=== PATIENT | female | born 1990 | race African-American/Black ===

== ENCOUNTER 2020-08-18 22:17 | Inpatient (IN) | payer SELFPAY ==
[~2020-08-18] VITALS: Ht 165.1 cm; Wt 89.8 kg
--- NOTE | 2020-08-18 22:28 | PHYS DOC ---
Past Medical History Past Medical History: No Pertinent History Alcohol Use: None Drug Use: Marijuana General Adult HPI: HPI: Patient is a 30-year-old female who presents via EMS for altered mental status. Patient who has no known medical issues and does not take any medications on a daily basis contacted her mother approximately 1 hour ago stating she did not feel well and that she was having a panic attack. Approximately 15 minutes after contacting her mother, patient called EMS asking for them to come and bring her to the hospital for evaluation. On arrival to the scene, patient who lives at home with mother only was found in the house with no other individuals. Patient found to have GCS of 9, minimally responsive to verbal stimuli but responsive to painful stimuli, she is tachycardic and tachypneic with remaining vitals unremarkable. Patient was subsequently transferred to our facility for further evaluation. Mother present on immediate ER arrival and assisted with medical history, states that patient has no known medical issues, does not take any medications on a daily basis, denies any illicit drug use that she is aware of, she has never had any episodes like this in the past Review of Systems: Review of Systems: Unable to obtain due to patient mentation Heart Score: HEART Score for Chest Pain: HEART Score for Chest Pain Response (Comments) Value History Slighlty/Non-Suspicious 0 ECG Normal 0 Age < 45 0 Risk Factors 1 or 2 Risk Factors 1 Troponin < Normal Limit 0 Total 1 Risk Factors: Risk Factors: DM, Current or recent (<one month) smoker, HTN, HLP, family history of CAD, obesity. Risk Scores: Score 0 - 3: 2.5% MACE over next 6 weeks - Discharge Home Score 4 - 6: 20.3% MACE over next 6 weeks - Admit for Clinical Observation Score 7 - 10: 72.7% MACE over next 6 weeks - Early Invasive Strategies Current Medications: Current Medications Medications (Trade) Dose Ordered Sig/[facility] Start Time Stop Time Status Last Admin Dose Admin Naloxone HCl (Narcan) 0.1 mg 1X ONCE 08/18/20 22:45 08/18/20 22:46 DC 08/18/20 23:03 0.1 MG Sodium Chloride 1,000 ml @ 150 mls/hr 1X ONCE 08/19/20 00:00 08/19/20 06:39 08/19/20 00:17 150 MLS/HR Physical Exam: PE: Constitutional: Opens eyes to speech, nonverbal, withdrawing normally to painful stimuli, GCS 9. Pt appears well-developed and well-nourished. HEENT: Head: Normocephalic and atraumatic. TMs clear, no hemotympanum Conjunctivae and EOM are normal. Pupils are equal, round, and reactive to light. Oropharynx is clear and moist. No hematomas or lacerations or abrasions to face or scalp OP clear, no blood, no malocclusion, dentition intact Nares clear, no nasal septal hematoma Midface stable Neck: C-spine midline nontender, no step-offs Cardiovascular: Tachycardic, regular rhythm and normal heart sounds. Pulmonary/Chest: Effort normal and breath sounds normal. No respiratory distress but is tachypneic. No wheezes. CTA bilaterally Abdominal: Soft. Bowel sounds are normal. Pt exhibits no distension. There is no tenderness. 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 No abrasions, no lacerations Psychiatric: Unable to fully assess due to mentation Current Patient Data: Labs: Laboratory Tests Test 08/18/20 22:25 08/18/20 22:27 08/18/20 22:30 08/18/20 23:35 Urine Collection Type U cath Urine Color Yellow Urine Clarity Clear Urine pH 5.0 Urine Specific [place] >=1.030 Urine Protein Negative mg/dL Urine Glucose (UA) Negative mg/dL Urine Ketones (Stick) Negative mg/dL Urine Blood Negative Urine Nitrite Negative Urine Bilirubin Negative Urine Urobilinogen Dipstick 0.2 mg/dL Urine Leukocyte Esterase Negative Urine RBC 0 /HPF Urine WBC Occ /HPF Urine Squamous Epithelial Cells Few /LPF Urine Amorphous Sediment Present /HPF Urine Bacteria 0 /HPF Urine Mucus Marked /LPF Urine Opiates Screen Neg Urine Methadone Screen Neg Urine Barbiturates Neg Urine Phencyclidine Screen Neg Urine Amphetamine/Methamphetamine Neg Urine Benzodiazepines Screen Neg Urine Cocaine Screen Neg Urine Cannabinoids Screen Pos Urine Ethyl Alcohol Neg Bedside Urine HCG, Qualitative Hcg negative White Blood Count 13.0 x10^3/uL Red Blood Count 4.33 x10^6/uL Hemoglobin 12.8 g/dL Hematocrit 37.8 % Mean Corpuscular Volume 87 fL Mean Corpuscular Hemoglobin 30 pg Mean Corpuscular Hemoglobin Concent 34 g/dL Red Cell Distribution Width 12.9 % Platelet Count 268 x10^3/uL Neutrophils (%) (Auto) 63 % Lymphocytes (%) (Auto) 30 % Monocytes (%) (Auto) 5 % Eosinophils (%) (Auto) 1 % Basophils (%) (Auto) 1 % Neutrophils # (Auto) 8.2 x10^3/uL Lymphocytes # (Auto) 3.9 x10^3/uL Monocytes # (Auto) 0.7 x10^3/uL Eosinophils # (Auto) 0.1 x10^3/uL Basophils # (Auto) 0.1 x10^3/uL Prothrombin Time 14.7 SEC Prothromb Time International Ratio 1.2 Activated Partial Thromboplast Time 25 SEC Sodium Level 141 mmol/L Potassium Level 3.9 mmol/L Chloride Level 104 mmol/L Carbon Dioxide Level 25 mmol/L Anion Gap 12 Blood Urea Nitrogen 17 mg/dL Creatinine 1.2 mg/dL Estimated GFR (Cockcroft-Gault) 63.0 BUN/Creatinine Ratio 14 Glucose Level 189 mg/dL Lactic Acid Level 2.7 mmol/L Calcium Level 8.8 mg/dL Total Bilirubin 0.3 mg/dL Aspartate Amino Transf (AST/SGOT) 23 U/L Alanine Aminotransferase (ALT/SGPT) 30 U/L Alkaline Phosphatase 75 U/L Ammonia < 10 mcmol/L Creatine Kinase 511 U/L Troponin I Quantitative < 0.017 ng/mL JQ-Psv-V-Type Natriuretic Peptide 13 pg/mL Total Protein 6.8 g/dL Albumin 3.6 g/dL Albumin/Globulin Ratio 1.1 Salicylates Level < 2.8 mg/dL Salicylate Last Dose Date Salicylate Last Dose Time Acetaminophen Level < 2 mcg/ml Acetaminophen Last Dose Date Acetaminophen Last Dose Time Ethyl Alcohol Level < 10 mg/dL O2 Saturation 95 % Arterial Blood pH 7.38 Arterial Blood pCO2 at Patient Temp 38 mmHg Arterial Blood pO2 at Patient Temp 84 mmHg Arterial Blood HCO3 22 mmol/L Arterial Blood Base Excess -3 mmol/L Oxyhemoglobin 94.5 % Methemoglobin 0.6 % Carbon Monoxide, Quantitative 0.3 % FiO2 21 Current Medications Medications (Trade) Dose Ordered Sig/Yaima Route PRN Reason Start Time Stop Time Status Last Admin Dose Admin Sodium Chloride 1,000 ml @ 0 mls/hr 1X ONCE IV 08/18/20 22:30 08/18/20 22:44 DC 08/18/20 23:03 1,000 MLS/HR Naloxone HCl (Narcan) 0.1 mg 1X ONCE IV 08/18/20 22:45 08/18/20 22:46 DC 08/18/20 23:03 0.1 MG Sodium Chloride 1,000 ml @ 150 mls/hr 1X ONCE IV 08/19/20 00:00 08/19/20 06:39 08/19/20 00:17 150 MLS/HR Vital Signs: Vital Signs Date Time Temp Pulse Resp B/P (MAP) Pulse Ox O2 Delivery O2 Flow Rate FiO2 08/19/20 01:12 96.9 97 16 116/75 (89) 98 Room Air 96.9 08/19/20 00:45 97 14 97 08/19/20 00:15 100 16 99 08/18/20 23:45 112 19 100 08/18/20 23:15 118 29 98 08/18/20 22:50 110 30 99 08/18/20 22:24 97.7 110 30 130/72 (91) 100 Room Air 97.7 EKG: EKG: EKG ordered and interpreted by myself at 2303 hrs. as sinus rhythm at 112 bpm, unremarkable intervals, no axis deviation, no acute ischemic findings, no STEMI Radiology/Procedures: Radiology/Procedures: CT scan of the head without contrast 08/18/2020 Clinical History: Diminished mentation. Technique: Unenhanced, contiguous, 5 mm axial sections were obtained through the head. One or more of the following individualized dose reduction techniques were utilized for this study: 1. Automated exposure control. 2. Adjustment of the mA and/or kV according to patient size. 3. Use of iterative reconstruction technique. Findings: The ventricles and sulci are within normal limits in size and configuration. No acute parenchymal abnormality is seen. No extra-axial fluid collection is noted. No skull fracture is seen. Impression: No acute intracranial abnormality is seen. Electronically signed by: Aidan Robb MD (08/18/2020 10:52 PM) [id number] Course & Med Decision Making: Course & Med Decision Making Pertinent Labs and Imaging studies reviewed. (See chart for details) Patient suffering from hypoactive delirium from unknown etiology, I suspect THC use versus other synthetic illicit drug use Patient who came in with GCS 9 improved with ER intervention. No relief from 0.1 mg Narcan given in ED but IV fluid rehydration in time saw gradual improvement in patient mentation. Patient more alert and responsive to verbal stimuli than arrival, tearful and nondisclosing of what brought her into ER, still somnolent and nonverbal, patient unable to safely ambulate and care for self at home given current state. Unsafe to dispo home I contacted hospitalist and discussed patient case, he agreed need for hospital admission for continued observation and supportive care I updated patient's mother on proposed plan of care and she was amenable. At present I do not feel patient has signs or symptoms indicative of further ER di agnostic work-up such as lumbar puncture. I disclose this with mother. She was amenable to plan of care as currently stated Critical Care Time This patient required critical care. Due to the fact that the patient required a significant amount of one on one physician - patient contact time, ordering and review of studies, arranging urgent treatment with development of a management plan, evaluation of patients response to treatment with frequent reassessments, and discussions with other providers this patient required 45 minutes of critical care time. Critical care time was indicated due to the inherent instability and/or potential for instability in this patient. The critical care time that is allocated to this patient is above and beyond any time spent on any other billable procedures performed on this patient. Tom Disclaimer: Tom Disclaimer: This electronic medical record was generated, in whole or in part, using a voice recognition dictation system. Departure Departure Impression: Primary Impression: Acute hypoactive cannabis intoxication delirium Disposition: ADMITTED INPT THIS HOSP Admitting Physician: SANDRA (DR HANSON) Condition: STABLE NOLBERTOLUISA Aug 18, 2020 22:28
[2020-08-18] MEDS ORDERED: IV NORMAL SALINE 1000ML BAG 1,000 ML IV ONE (22:30)
[2020-08-18 22:35] LABS: BILIRUBIN,URINE NEGATIVE (NEG); CLARITY,URINE CLEAR; COLOR,URINE YELLOW; NITRITE,URINE NEGATIVE (NEG); PROTEIN,URINE NEGATIVE (NEG-TRACE); UROBILINOGEN,URINE 0.2 mg/dL (0.2 mg/dL)
[2020-08-18 22:41] LABS: BARBITURATES NEG (NEG); BENZODIAZEPINES NEG (NEG); CANNABINOIDS POS (NEG); COCAINE NEG (NEG); METHADONE NEG (NEG); OPIATES NEG (NEG); PHENCYCLIDINE NEG (NEG)
[2020-08-18 22:45] LABS: AMPHETAMINE/METHAMPHETAMINE NEG (NEG)
[2020-08-18] MEDS ORDERED: NALOXONE 0.4 MG/ML VIAL. IV ONE (22:45)
[2020-08-18 22:46] LABS: BASO # 0.1 x10^3/uL (0.0-0.2); BASO % 1 % (0-3); EOS # 0.1 x10^3/uL (0.0-0.7); EOS % 1 % (0-3); HEMATOCRIT 37.8 % (36.0-47.0); HEMOGLOBIN 12.8 g/dL (12.0-15.5); LYMPH # 3.9 x10^3/uL (1.0-4.8); LYMPH % 30 % (24-48); MEAN CORPUSCULAR HEMOGLOBIN 30 pg (25-35); MEAN CORPUSCULAR HGB CONC 34 g/dL (31-37); MEAN CORPUSCULAR VOLUME 87 fL (79-100); MONO # 0.7 x10^3/uL (0.0-1.1); MONO % 5 % (0-9); NEUT # 8.2 x10^3/uL (1.8-7.7); NEUT % 63 % (31-73); PLATELET COUNT 268 x10^3/uL (140-400); RED BLOOD COUNT 4.33 x10^6/uL (3.50-5.40); RED CELL DISTRIBUTION WIDTH 12.9 % (11.5-14.5)
[2020-08-18 22:52] LABS: AMORPHOUS SEDIMENT,UR PRESENT /HPF; BACTERIA,URINE 0 /HPF (0-FEW); RBC,URINE 0 /HPF (0-2); WBC,URINE OCC /HPF (0-4)
--- NOTE | 2020-08-18 22:54 | RAD ---
CT scan of the head without contrast 08/18/2020 Clinical History: Diminished mentation. Technique: Unenhanced, contiguous, 5 mm axial sections were obtained through the head. One or more of the following individualized dose reduction techniques were utilized for this study: 1. Automated exposure control. 2. Adjustment of the mA and/or kV according to patient size. 3. Use of iterative reconstruction technique. Findings: The ventricles and sulci are within normal limits in size and configuration. No acute paren chymal abnormality is seen. No extra-axial fluid collection is noted. No skull fracture is seen. Impression: No acute intracranial abnormality is seen. Electronically signed by: Aidan Robb MD (08/18/2020 10:52 PM) [id number]
[2020-08-18 22:56] LABS: PROTHROMBIN TIME PATIENT 14.7 SEC (11.7-14.0)
[2020-08-18 22:57] LABS: CALCIUM 8.8 mg/dL (8.5-10.1); CREATININE 1.2 mg/dL (0.6-1.0); POTASSIUM 3.9 mmol/L (3.5-5.1)
--- NOTE | 2020-08-18 23:02 | RAD ---
XR CHEST 1V History: Reason: AMS / Spl. Instructions: / History: Comparison: None. Findings: Low lung volumes. Patchy bibasilar opacities. No pleural effusion. No pneumothorax. Normal heart size . Impression: 1. Low lung volumes with patchy bibasilar opacities, likely atelectasis. Electronically signed by: Kenan Wilkerson DO (08/18/2020 11:00 PM) [facility] [place]
[2020-08-18 23:03] LABS: ACETAMIN < 2 mcg/ml (10-30); ETHANOL < 10 mg/dL (0-10); SALIC < 2.8 mg/dL (2.8-20.0)
[2020-08-18 23:10] LABS: ALBUMIN 3.6 g/dL (3.4-5.0); ALBUMIN/GLOBULIN RATIO 1.1 (1.0-1.7); TOTAL BILIRUBIN 0.3 mg/dL (0.2-1.0); TOTAL PROTEIN 6.8 g/dL (6.4-8.2)
[2020-08-18 23:37] LABS: BASE EXCESS COOX -3 mmol/L (-3-3); HCO3 COOX 22 mmol/L (21-28); METHEMOGLOBIN 0.6 % (0.0-1.9); OXYHEMOGLOBIN 94.5 %; PCO2 COOX 38 mmHg (35-46); PO2 COOX 84 mmHg (85-108); SAT O2 COOX 95 % (92-99)
[2020-08-19] VITALS (7 sets, daily range): BP systolic 102–120; BP diastolic 54–75
[2020-08-19] MEDS ORDERED: IV NORMAL SALINE 1000ML BAG 1,000 ML IV ONE
--- NOTE | 2020-08-19 01:49 | NUR ---
0110 arrived to 4N room 438 somnolent, barely open eyes to verbal command, patient's mom here and denies medical and surgical history or home medications. Mother denies drug use or alcohol/smoke use. pt unable to get history due AMS. VS taken, assessment completed. Seizure precautions observed.
--- NOTE | 2020-08-19 08:23 | PDOC1 ---
History and Physical Date of Service: DOS: DATE: 08/19/20 TIME: 08:18 Chief Complaint: Chief Complain: Altered mental status History of Present Illness: HPI: 30-year-old female who presents via EMS for altered mental status. Patient who has no known medical issues and does not take any medications on a daily basis contacted her mother approximately 1 hour ago stating she did not feel well and that she was having a panic attack. Approximately 15 minutes after contacting her mother, patient called EMS asking for them to come and bring her to the hospital for evaluation. On arrival to the scene, patient who lives at home with mother only was found in the house with no other individuals. Patient found to have GCS of 9, minimally responsive to verbal stimuli but responsive to painful stimuli, she is tachycardic and tachypneic with remaining vitals unremarkable. Patient was subsequently transferred to our facility for further evaluation. Mother present on immediate ER arrival and assisted with medical history, states that patient has no known medical issues, does not take any medications on a daily basis, denies any illicit drug use that she is aware of, she has never had any episodes like this in the past Past Medical/Surgical History: PMH/PSH: No pertinent past medical or surgical history Allergies: Allergies: Coded Allergies: No Known Drug Allergies (Unverified , 08/18/20) Family History: Family History: Reviewed with no pertinent findings Social History: Social History: History of marijuana use Current Medications: Current Medications Current Medications Sodium Chloride 1,000 ml @ 0 mls/hr 1X ONCE IV Last administered on 08/18/20at 23:03; Start 08/18/20 at 22:30; Stop 08/18/20 at 22:44; Status DC Naloxone HCl (Narcan) 0.1 mg 1X ONCE IV Last administered on 08/18/20at 23:03; Start 08/18/20 at 22:45; Stop 08/18/20 at 22:46; Status DC Sodium Chloride 1,000 ml @ 150 mls/hr 1X ONCE IV Last administered on 08/19/20at 00:17; Start 08/19/20 at 00:00; Stop 08/19/20 at 06:39; Status DC ROS: Review of Systems Review of System REVIEW OF SYSTEMS: GENERAL: Denies weakness SKIN: No bruising, hair changes or rashes. EYES: No blurred, double or loss of vision. NOSE AND THROAT: No history of nosebleeds, hoarseness or sore throat. HEART: No history of palpitations, chest pain or shortness of breath on exertion. LUNGS: Denies cough, hemoptysis, wheezing or shortness of breath. GASTROINTESTINAL: Denies changes in appetite, nausea, vomiting, diarrhea or constipation. GENITOURINARY: No history of frequency, urgency, hesitancy or nocturia. NEUROLOGIC: Denies history of numbness, tingling, or tremor. PSYCHIATRIC: No history of panic, anxiety or depression. ENDOCRINE: No history of heat or cold intolerance, polyuria or polydipsia. EXTREMITIES: Denies joint pain, pain on walking or stiffness. Physical Exam: Vital Signs: Vital Signs Date Time Temp Pulse Resp B/P (MAP) Pulse Ox O2 Delivery O2 Flow Rate FiO2 08/19/20 07:16 98.0 91 18 108/67 (81) 94 Room Air 98.0 Physcial Exam: GEN: No apparent distress. Alert and oriented HEENT: Normal cephalic, atraumatic, external auditory canals are patent EYES: Extraocular muscles are intact, pupil are equally round and reactive to light and accommodation MUSCULOSKELETAL: Well developed , well nourished, good range of motion ENDOCRINE: No thyromegaly was palpated LYMPHATICS: No cervical chain or axillary nodes were noted HEMATOPOIETIC: No bruising NECK: Supple, no JVD, no thyromegaly was noted LUNGS: Clear to auscultation in all lung frank without rhonchi or wheezing HEART: RRR, S!, S2 present. Peripheral pulses intact, no obvious murmurs noted ABDOMEN: Soft, nontender. Positive bowel sounds, no organomegaly, normal bowel sounds EXTREMITIES: Without clubbing, cyanosis, or edema. Pedal pulses intact. Negative Homans sign NEUROLOGIC: Normal speech and tone. A&O x 3, moves all extremities, no obvious focal deficits PSYCHIATRIC: Normal affect, normal mood. Stable SKIN: No ulcerations or rashes, good skin turgor, no jaundice VASCULAR: Good capillary refill, neurovascular bundle appears to be intact Labs: Labs: Laboratory Tests Test 08/18/20 22:25 08/18/20 22:27 08/18/20 22:30 08/18/20 23:35 Urine Collection Type U cath Urine Color Yellow Urine Clarity Clear Urine pH 5.0 (<5.0-8.0) Urine Specific [place] >=1.030 (1.000-1.030) Urine Protein Negative mg/dL (NEG-TRACE) Urine Glucose (UA) Negative mg/dL (NEG) Urine Ketones (Stick) Negative mg/dL (NEG) Urine Blood Negative (NEG) Urine Nitrite Negative (NEG) Urine Bilirubin Negative (NEG) Urine Urobilinogen Dipstick 0.2 mg/dL (0.2 mg/dL) Urine Leukocyte Esterase Negative (NEG) Urine RBC 0 /HPF (0-2) Urine WBC Occ /HPF (0-4) Urine Squamous Epithelial Cells Few /LPF Urine Amorphous Sediment Present /HPF Urine Bacteria 0 /HPF (0-FEW) Urine Mucus Marked /LPF Urine Opiates Screen Neg (NEG) Urine Methadone Screen Neg (NEG) Urine Barbiturates Neg (NEG) Urine Phencyclidine Screen Neg (NEG) Urine Amphetamine/Methamphetamine Neg (NEG) Urine Benzodiazepines Screen Neg (NEG) Urine Cocaine Screen Neg (NEG) Urine Cannabinoids Screen Pos (NEG) Urine Ethyl Alcohol Neg (NEG) Bedside Urine HCG, Qualitative Hcg negative (Negative) White Blood Count 13.0 x10^3/uL (4.0-11.0) Red Blood Count 4.33 x10^6/uL (3.50-5.40) Hemoglobin 12.8 g/dL (12.0-15.5) Hematocrit 37.8 % (36.0-47.0) Mean Corpuscular Volume 87 fL (79-100) Mean Corpuscular Hemoglobin 30 pg (25-35) Mean Corpuscular Hemoglobin Concent 34 g/dL (31-37) Red Cell Distribution Width 12.9 % (11.5-14.5) Platelet Count 268 x10^3/uL (140-400) Neutrophils (%) (Auto) 63 % (31-73) Lymphocytes (%) (Auto) 30 % (24-48) Monocytes (%) (Auto) 5 % (0-9) Eosinophils (%) (Auto) 1 % (0-3) Basophils (%) (Auto) 1 % (0-3) Neutrophils # (Auto) 8.2 x10^3/uL (1.8-7.7) Lymphocytes # (Auto) 3.9 x10^3/uL (1.0-4.8) Monocytes # (Auto) 0.7 x10^3/uL (0.0-1.1) Eosinophils # (Auto) 0.1 x10^3/uL (0.0-0.7) Basophils # (Auto) 0.1 x10^3/uL (0.0-0.2) Prothrombin Time 14.7 SEC (11.7-14.0) Prothromb Time International Ratio 1.2 (0.8-1.1) Activated Partial Thromboplast Time 25 SEC (24-38) Sodium Level 141 mmol/L (136-145) Potassium Level 3.9 mmol/L (3.5-5.1) Chloride Level 104 mmol/L (98-107) Carbon Dioxide Level 25 mmol/L (21-32) Anion Gap 12 (6-14) Blood Urea Nitrogen 17 mg/dL (7-20) Creatinine 1.2 mg/dL (0.6-1.0) Estimated GFR (Cockcroft-Gault) 63.0 BUN/Creatinine Ratio 14 (6-20) Glucose Level 189 mg/dL (70-99) Lactic Acid Level 2.7 mmol/L (0.4-2.0) Calcium Level 8.8 mg/dL (8.5-10.1) Total Bilirubin 0.3 mg/dL (0.2-1.0) Aspartate Amino Transf (AST/SGOT) 23 U/L (15-37) Alanine Aminotransferase (ALT/SGPT) 30 U/L (14-59) Alkaline Phosphatase 75 U/L (46-116) Ammonia < 10 mcmol/L (11-34) Creatine Kinase 511 U/L (26-192) Troponin I Quantitative < 0.017 ng/mL (0.000-0.055) HZ-Cdc-C-Type Natriuretic Peptide 13 pg/mL (0-124) Total Protein 6.8 g/dL (6.4-8.2) Albumin 3.6 g/dL (3.4-5.0) Albumin/Globulin Ratio 1.1 (1.0-1.7) Salicylates Level < 2.8 mg/dL (2.8-20.0) Salicylate Last Dose Date Salicylate Last Dose Time Acetaminophen Level < 2 mcg/ml (10-30) Acetaminophen Last Dose Date Acetaminophen Last Dose Time Ethyl Alcohol Level < 10 mg/dL (0-10) O2 Saturation 95 % (92-99) Arterial Blood pH 7.38 (7.35-7.45) Arterial Blood pCO2 at Patient Temp 38 mmHg (35-46) Arterial Blood pO2 at Patient Temp 84 mmHg (85-108) Arterial Blood HCO3 22 mmol/L (21-28) Arterial Blood Base Excess -3 mmol/L (-3-3) Oxyhemoglobin 94.5 % Methemoglobin 0.6 % (0.0-1.9) Carbon Monoxide, Quantitative 0.3 % (0.0-1.9) FiO2 21 Laboratory Tests Test 08/18/20 22:25 08/18/20 22:27 08/18/20 22:30 08/18/20 23:35 Urine Collection Type U cath Urine Color Yellow Urine Clarity Clear Urine pH 5.0 (<5.0-8.0) Urine Specific [place] >=1.030 (1.000-1.030) Urine Protein Negative mg/dL (NEG-TRACE) Urine Glucose (UA) Negative mg/dL (NEG) Urine Ketones (Stick) Negative mg/dL (NEG) Urine Blood Negative (NEG) Urine Nitrite Negative (NEG) Urine Bilirubin Negative (NEG) Urine Urobilinogen Dipstick 0.2 mg/dL (0.2 mg/dL) Urine Leukocyte Esterase Negative (NEG) Urine RBC 0 /HPF (0-2) Urine WBC Occ /HPF (0-4) Urine Squamous Epithelial Cells Few /LPF Urine Amorphous Sediment Present /HPF Urine Bacteria 0 /HPF (0-FEW) Urine Mucus Marked /LPF Urine Opiates Screen Neg (NEG) Urine Methadone Screen Neg (NEG) Urine Barbiturates Neg (NEG) Urine Phencyclidine Screen Neg (NEG) Urine Amphetamine/Methamphetamine Neg (NEG) Urine Benzodiazepines Screen Neg (NEG) Urine Cocaine Screen Neg (NEG) Urine Cannabinoids Screen Pos (NEG) Urine Ethyl Alcohol Neg (NEG) Bedside Urine HCG, Qualitative Hcg negative (Negative) White Blood Count 13.0 x10^3/uL (4.0-11.0) Red Blood Count 4.33 x10^6/uL (3.50-5.40) Hemoglobin 12.8 g/dL (12.0-15.5) Hematocrit 37.8 % (36.0-47.0) Mean Corpuscular Volume 87 fL (79-100) Mean Corpuscular Hemoglobin 30 pg (25-35) Mean Corpuscular Hemoglobin Concent 34 g/dL (31-37) Red Cell Distribution Width 12.9 % (11.5-14.5) Platelet Count 268 x10^3/uL (140-400) Neutrophils (%) (Auto) 63 % (31-73) Lymphocytes (%) (Auto) 30 % (24-48) Monocytes (%) (Auto) 5 % (0-9) Eosinophils (%) (Auto) 1 % (0-3) Basophils (%) (Auto) 1 % (0-3) Neutrophils # (Auto) 8.2 x10^3/uL (1.8-7.7) Lymphocytes # (Auto) 3.9 x10^3/uL (1.0-4.8) Monocytes # (Auto) 0.7 x10^3/uL (0.0-1.1) Eosinophils # (Auto) 0.1 x10^3/uL (0.0-0.7) Basophils # (Auto) 0.1 x10^3/uL (0.0-0.2) Prothrombin Time 14.7 SEC (11.7-14.0) Prothromb Time International Ratio 1.2 (0.8-1.1) Activated Partial Thromboplast Time 25 SEC (24-38) Sodium Level 141 mmol/L (136-145) Potassium Level 3.9 mmol/L (3.5-5.1) Chloride Level 104 mmol/L (98-107) Carbon Dioxide Level 25 mmol/L (21-32) Anion Gap 12 (6-14) Blood Urea Nitrogen 17 mg/dL (7-20) Creatinine 1.2 mg/dL (0.6-1.0) Estimated GFR (Cockcroft-Gault) 63.0 BUN/Creatinine Ratio 14 (6-20) Glucose Level 189 mg/dL (70-99) Lactic Acid Level 2.7 mmol/L (0.4-2.0) Calcium Level 8.8 mg/dL (8.5-10.1) Total Bilirubin 0.3 mg/dL (0.2-1.0) Aspartate Amino Transf (AST/SGOT) 23 U/L (15-37) Alanine Aminotransferase (ALT/SGPT) 30 U/L (14-59) Alkaline Phosphatase 75 U/L (46-116) Ammonia < 10 mcmol/L (11-34) Creatine Kinase 511 U/L (26-192) Troponin I Quantitative < 0.017 ng/mL (0.000-0.055) QN-Opf-T-Type Natriuretic Peptide 13 pg/mL (0-124) Total Protein 6.8 g/dL (6.4-8.2) Albumin 3.6 g/dL (3.4-5.0) Albumin/Globulin Ratio 1.1 (1.0-1.7) Salicylates Level < 2.8 mg/dL (2.8-20.0) Salicylate Last Dose Date Salicylate Last Dose Time Acetaminophen Level < 2 mcg/ml (10-30) Acetaminophen Last Dose Date Acetaminophen Last Dose Time Ethyl Alcohol Level < 10 mg/dL (0-10) O2 Saturation 95 % (92-99) Arterial Blood pH 7.38 (7.35-7.45) Arterial Blood pCO2 at Patient Temp 38 mmHg (35-46) Arterial Blood pO2 at Patient Temp 84 mmHg (85-108) Arterial Blood HCO3 22 mmol/L (21-28) Arterial Blood Base Excess -3 mmol/L (-3-3) Oxyhemoglobin 94.5 % Methemoglobin 0.6 % (0.0-1.9) Carbon Monoxide, Quantitative 0.3 % (0.0-1.9) FiO2 21 Images: Images CXR Impression: 1. No acute cardiopulmonary process. Negative head CT Assessment/Plan Assessment/Plan Acute metabolic encephalopathy NOS Acute delirium or confusional state due to infectious versus toxic versus metabolic disturbance Reactive leukocytosis LESTER due to vasomotor nephropathy Lactic acidemia Elevated creatinine kinase concerning for rhabdomyolysis Positive for cannabinoids Pending urine toxic drug screen IV Haldol as needed for agitation, consider sitter as needed if non-redirectable agitation Nutrition consult if there is malnutrition or concern for vitamin deficiencies Continue IV fluids Strict I's and O's Trend creatinine kinase SCD and ambulation for DVT prophylaxis Full code Discussed with RN and SW Dispo inpatient management as above DPOA is the mother Justifications for Admission Other Justification GLADYS HANSON MD Aug 19, 2020 08:23
--- NOTE | 2020-08-19 10:27 | NUR ---
SW following. Discussed with RN, pt from home with mother, room air, clear liquid diet. PAT consult for marijuana use. Med Assist following for self pay status. JULIO CESAR will continue to follow. Addendum: 08/19/20 at 1321 by HOLLIE BOWMAN SW Bam ([place]) met with pt, pt reported she smokes weed occasionally. Reported she smoked some weed last night and then ate some pot brownies. Pt denies any other drug use. Pt reported hx of depression and anxiety. Pt provided with resources for [facility], [facility] and [facility]. RN and Dr. Hfofmann notified.
[2020-08-20 03:19] VITALS: BP 105/58
[2020-08-20 07:10] VITALS: BP 107/65
--- NOTE | 2020-08-20 09:43 | NUR ---
SW following. Discussed with RN,pt from home with mother, room air, regular diet. Pt cleared by PAT. RN anticipates discharge home today. SW will continue to follow.
[2020-08-20 10:23] VITALS: BP 103/57
--- NOTE | 2020-08-20 11:37 | DISCH ---
DISCHARGE INSTRUCTIONS Condition on Discharge Condition on Discharge: Stable Activity After Discharge Activity Instructions for Disc: Activity as tolerated Lifting Instructions after Dis: Do not lift >10 pounds Driving Instructions after Dis: Do not drive today Follow-Up Follow up with: PCP within 2 weeks of discharge GLADYS HANSON MD Aug 20, 2020 11:37
--- NOTE | 2020-08-20 12:49 | NUR ---
Patient discharge home with self care today via wheelchair accompany by aid. Patient is alert, IVs removed, and discharge instruction given to patient. Patient verbalized understanding of followup and discharge instruction.
--- NOTE | 2020-08-22 20:57 | PDOC3 ---
[facility]-Discharge Summary Date of Admission: Date of Admission: Aug 19, 2020 Date of Discharge: Date of Discharge: Aug 20, 2020 Hospital Course: Hospital Course: 30-year-old female who presents via EMS for altered mental status. Patient who has no known medical issues and does not take any medications on a daily basis contacted her mother approximately 1 hour ago stating she did not feel well and that she was having a panic attack. Approximately 15 minutes after contacting her mother, patient called EMS asking for them to come and bring her to the hospital for evaluation. On arrival to the scene, patient who lives at home with mother only was found in the house with no other individuals. Patient found to have GCS of 9, minimally responsive to verbal stimuli but responsive to painful stimuli, she is tachycardic and tachypneic with remaining vitals unremarkable. Patient was subsequently transferred to our facility for further evaluation. Mother present on immediate ER arrival and assisted with medical history, states that patient has no known medical issues, does not take any medications on a daily basis, denies any illicit drug use that she is aware of, she has never had any episodes like this in the past Bam [employer]) met with pt, pt reported she smokes weed occasionally. Reported she smoked some weed last night and then ate some pot brownies. Pt denies any other drug use. Pt reported hx of depression and anxiety. Pt provided with resources for [facility] Patient will go home with mother. Rest of her hospital course was uneventful. Disposition: Disposition/Orders: D/C to Home Activity: Activity: Resume previous activity Medications: Home Meds No Active Prescriptions or Reported Meds No Active Prescriptions or Reported Meds Total Time: Total Time: Total time spent was 35 minutes in preparing scripts, discharge planning with SW and RN, and preparing this discharge summary. Patient seen and examined on day of discharge. Justicifation of Admission Dx: Justifications for Admission: Justification of Admission Dx: Yes Altered Mental Status: Altered Mental Status GLADYS HANSON MD Aug 22, 2020 20:57
== END 2020-08-20 13:00 | disposition home or self-care (01) | DRG 70 ==
LOC: ER 22:17 → 4 NORTH 08-19 00:01 → ER 08-19 01:05
PROVIDERS: ADMIT Internal Medicine; ATTEND Internal Medicine
DX: G93.41 Metabolic encephalopathy (principal); N17.0 Acute kidney failure with tubular necrosis; E87.2 Acidosis; F12.929 Cannabis use, unspecified with intoxication, unspecified; F12.90 Cannabis use, unspecified, uncomplicated; E88.9 Metabolic disorder, unspecified
CPT/HCPCS: 36415; 36600; 70450; 71045; 80053; 80307; 80329; 81001; 81025; 82140; 82550; 82805; 83605; 83880; 84484; 85025; 85610; 85730; 87040; 93005; 96361; 96374; G0480; J2310; J7030; 99291-25; G0378